=== PATIENT | male | born 1960 | race American Indian/Alaskan Native ===

== ENCOUNTER 2016-10-30 10:17 | Outpatient (CLI) | payer MEDICAID ==
[2016-10-30 11:11] LABS: Blood Urea Nitrogen 14 mg/dL (9-20)
[2016-10-30] MEDS ORDERED: NACL ONE (11:58)
--- NOTE | 2016-10-30 14:43 | Cat Scan Report ---
CT LUMBAR SPINE WITH CONTRAST: HISTORY: Low back pain. TECHNIQUE: Helical CT with sagittal and coronal reformatted images following IV contrast. COMPARISON: None. FINDINGS: There is normal height and alignment of the lumbar vertebral bodies. No fracture or suspicious bone lesion. The posterior elements are in appropriate relationship. Ljbvnpst-co-qkxvie degenerative disc disease is noted at L3-4, L4-5 and L5-S1. There is advanced disc space narrowing and marginal spurring at L3-4 and L4-5 with vacuum phenomenon. These findings are less impressive at L5-S1. There is moderate facet arthropathy at these levels as well. L1-2: No abnormality. L2-3: No abnormality. L3-4: There is moderate circumferential spurring which effaces the anterior thecal sac. Mild facet arthropathy and hypertrophy of the ligamentum flavum. No central canal narrowing is suspected. No bilateral neural foraminal narrowing. L4-5: Moderate circumferential spurring is identified which lateralizes to the left side. Mild facet arthropathy and hypertrophy of the ligamentum flavum. Yyoh-wk-mazlqagn left neural foraminal narrowing is suspected and estimated at 50% or greater. No right neural foraminal narrowing. L5-S1: No significant abnormality with the disc. There is mpmytbyn-zi-sjpnof facet arthropathy with hypertrophic changes on the left side. No central canal stenosis or neuroforaminal narrowing. No abnormal enhancement following IV contrast is demonstrated. IMPRESSION: Multilevel lumbar spondylosis which is most pronounced at L3-4 and L4-5. Left L4-5 neural foraminal narrowing is suspected, as outlined above. Correlate for radicular symptoms. No evidence for fracture, bone lesion, malalignment or an abnormal enhancement.
== END 2016-10-30 10:18 | disposition home or self-care (01) ==
LOC: MRI 10:17
PROVIDERS: ATTEND Orthopaedic Surgery Orthopaedic Trauma
DX: M47.896 Other spondylosis, lumbar region (principal); M54.16 Radiculopathy, lumbar region; M51.37 Other intervertebral disc degeneration, lumbosacral region; M12.88 Other specific arthropathies, not elsewhere classified, other specified site; M24.28 Disorder of ligament, vertebrae
CPT/HCPCS: 36415; 72132; 82565; 84520; Q9967

== ENCOUNTER 2018-05-20 14:38 | Outpatient (CLI) | payer MEDICAID ==
--- NOTE | 2018-05-20 15:41 | XRay Report ---
Right shoulder 3 views: History: Shoulder pain. Findings: No bony or articular abnormality. No fracture dislocation or soft tissue calcification. Impression: Essentially negative right shoulder.
== END 2018-05-20 14:39 | disposition home or self-care (01) ==
LOC: SPVIMAG 14:38
PROVIDERS: ATTEND Orthopaedic Surgery Sports Medicine
DX: M25.511 Pain in right shoulder (principal)